=== PATIENT | female | born 1985 | race Caucasian/White ===

== ENCOUNTER 2021-12-01 16:00 | Outpatient (RCR) | payer MEDICAID, SELFPAY | END 2021-12-25 14:23 | disposition home or self-care (01) | PROVIDERS: PCP Physician Assistant Medical; Visit Provider Family Medicine | DX: M54.50 Low back pain, unspecified (principal); Z51.89 Encounter for other specified aftercare | CPT/HCPCS: 97110; 97140; 97162 ==

== ENCOUNTER 2022-07-10 16:59 | Emergency (ER) | payer MEDICAID, SELFPAY ==
[2022-07-10 17:17] VITALS: BP 119/78; PULSE 74; RESP 18; TEMP 36.4; O2SAT 100; BMI 35.4
[2022-07-10 18:19] LABS: Appearance Urine Cloudy (Clear); Bilirubin Urine Negative (Negative); Blood Urine Trace-lysed (Negative); Color Urine Yellow (Yellow); Glucose Urine Negative (Negative); Ketones Urine Negative (Negative); Leukocyte Esterase Urine 1+ (Negative); Nitrite Urine Negative (Negative); Protein Urine Negative (Negative); Urobilinogen Urine 0.2 (0.2-1.0); pH Urine 6.5 (5.0-8.5)
[2022-07-10 18:33] LABS: Squamous Epithelial Cell Urine Few (None-Few)
--- NOTE | 2022-07-10 19:18 | ED_ITS ---
HPI - General Adult General Time Seen by Provider: 19:18 Date Seen: 07/10/22 Chief complaint: Flank Pain Stated complaint: bad lower back pain Time Seen by Provider: 07/10/22 19:17 Source: patient, RN notes reviewed and old records reviewed Mode of arrival: ambulatory Limitations: no limitations History of Present Illness HPI narrative: Michelle is a very pleasant 36-year-old female with a history of PID, bipolar disorder who comes to the emergency room with complaints of left flank and abdominal pain. 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 The following day she began experiencing painful urination which has increased. She has not noticed any blood in her urine. She has been dealing with some constipation and thought that may be implicated. She notes that she actually went to the chiropractor and had back adjustments which usually help her. This time, however, it is not helping people. She has tried heat and ibuprofen as well as other roller ball. She feels that that she is starting to get nauseated today and she has been experiencing chills. She denies any vomiting or obvious fever. In regards to her constipation shoe as actually at [facility] today for a stooling urge tests. Related Data Home Medications Medication Instructions Recorded Confirmed clonazepam 0.5 mg disintegrating 0.5 mg PO 02/05/22 04/18/22 tablet clonidine HCl 0.1 mg tablet 0.2 mg PO 02/05/22 04/18/22 linaclotide 290 mcg capsule 290 mcg PO 02/05/22 04/18/22 (Linzess) trazodone 50 mg tablet 100 mg PO 02/05/22 04/18/22 hydroxyzine pamoate 50 mg capsule 50 mg PO PRN 04/18/22 04/18/22 lamotrigine 25 mg tablet 125 mg PO 04/18/22 04/18/22 levothyroxine 50 mcg tablet 88 mcg PO DAILY 04/18/22 07/10/22 plecanatide 3 mg tablet (Trulance) 3 mg PO DAILY 07/10/22 07/10/22 venlafaxine 37.5 mg 37.5 mg PO DAILY 07/10/22 07/10/22 capsule,extended release 24 hr Allergies Allergy/AdvReac Type Severity Reaction Status Date / Time No Known Allergies Allergy Verified 07/10/22 17:23 Review of Systems Status of ROS: Reports: 6 or more systems reviewed and unremarkable except as noted in History and below [facility] Surgical History History of tubal ligation ?Z98.51 - Tubal ligation status (ICD-10) Social History Smoking Status: Former smoker Do you use any of these nicotine containing products: None Second hand tobacco smoke exposure: No How often do you have a drink containing alcohol: 2-4 times a month AUDIT-C Alcohol total score: 2 Non-prescribed substance use: denies use Exam Narrative: Exam Narrative: Patient is alert and oriented. She is somewhat uncomfortable. She is seems to be chilled. External ears eyes nose clear. Oral cavity is moist mucous membranes. Heart with regular rate and rhythm and lungs are clear. She does have CVA tenderness to percussion on the left. She also has what appears to be some soft tissue discomfort with palpation over the superior posterior iliac spine. There is an area of redness on her left lateral posterior superior hip. Warm to the touch no blistering is noted. Abdomen shows tenderness in the left lower quadrant. No rebound tenderness no masses are palpated. Moving all extremities. Const: Vital Signs, click to edit/add: Vital Signs - 24 hr 07/10/22 17:17 Temperature 97.5 F L Pulse Rate [Pulse Oximeter] 74 Respiratory Rate 18 Blood Pressure [Ri ght Upper Arm] 119/78 Pulse Oximetry 100 Oxygen Delivery Me thod Room Air Documenting provider has reviewed patient's vital signs: yes Course Course Hospital Course: Differential diagnosis includes but is not limited to pyelonephritis, ureteral colic, kidney stone, colitis, diverticulitis, soft tissue injury, musculoskeletal pain. Will place an IV and draw labs to include CBC, comprehensive, urinalysis, CRP. Spoke briefly about possible imaging but will hold off at this time. Will give patient Zofran 4 mg and Toradol 15 mg as well as 1 L of normal saline. Vital Signs Vital signs: Initial Vital Signs Temperature 97.5 F L 07/10/22 17:17 Temperature Source Temporal Artery Scan 07/10/22 17:17 Pulse Rate 74 07/10/22 17:17 Respiratory Rate 18 07/10/22 17:17 Blood Pressure 119/78 07/10/22 17:17 Blood Pressure Mean 91 07/10/22 17:17 Blood Pressure Position Sitting 07/10/22 17:17 Pulse Oximetry 100 07/10/22 17:17 Oxygen Delivery Method Room Air 07/10/22 17:17 Vital Signs Temperature 97.5 F L 07/10/22 17:17 Pulse Rate 74 07/10/22 17:17 Respiratory Rate 18 07/10/22 17:17 Blood Pressure 119/78 07/10/22 17:17 Pulse Oximetry 100 07/10/22 17:17 Oxygen Delivery Method Room Air 07/10/22 17:17 Temperature 97.5 F L 07/10/22 17:17 Pulse Rate 74 07/10/22 17:17 Respiratory Rate 18 07/10/22 17:17 Blood Pressure 119/78 07/10/22 17:17 Pulse Oximetry 100 07/10/22 17:17 Oxygen Delivery Method Room Air 07/10/22 17:17 Medical Decision Making [facility] Narrative Medical decision making narrative: 1. UTI-urinalysis not obvious with large amounts of white and red cells but given patient's history and dysuria I do suspect suspect this is a urinary tract infection. No evidence of stone or underlying bowel pathology on CT. Will treat with Levaquin 500 mg daily for 7 days while awaiting urine culture. I suspect this has ascended to the left kidney although there is no evidence of sepsis and labs are reassuring. Ibuprofen may be used for discomfort. I have given her 4 tablets through our [employer] machine a Percocet to be used for breakthrough pain. 1/2-1 tab p.o. q.4-6 hours p.r.n. pain. No further narcotic should be issued via our emergency room. Patient noted to deny any history of addiction. No recent narcotics her prescription monitoring program. 2. Disposition-home at this time. Return for fever, vomiting, worsening symptoms and as needed. Medical Records Medical records reviewed: Yes I reviewed the patient's medical records Lab Data Lab results reviewed: Yes I reviewed the patient's lab results Labs: Lab Results 07/10/22 07/10/22 Range/Units 17:30 19:38 WBC 5.99 (4.50-11.00) K/uL RBC 4.42 (4.00-5.20) m/uL Hgb 12.9 (12.0-16.0) gm/dL Hct 40.1 (33.0-51.0) % MCV 91 (80-100) fL MCH 29 (26-34) pg MCHC 32 (32-36) gm/dL RDW Coeff of Jodee 12.9 (11.5-15.5) % Plt Count 275 (140-440) K/uL Neut % (Auto) 45.8 (42.0-72.0) % Lymph % (Auto) 43.6 (20-44) % [place] % (Auto) 6.7 (0.0-11.0) % Eos % (Auto) 3.2 (0.0-7.0) % Baso % (Auto) 0.7 (0.0-3.0) % Neut # (Auto) 2.75 (1.7-7.0) K/uL Lymph # (Auto) 2.61 (0.90-2.90) K/uL [place] # (Auto) 0.40 (0.00-0.90) K/UL Eos # (Auto) 0.19 (0.00-0.50) K/uL Baso # (Auto) 0.04 (0.00-0.30) K/uL Sodium 138 (135-149) mmol/L Potassium 4.3 (3.6-5.1) mmol/L Chloride 103 (96-114) mmol/L Carbon Dioxide 26 (20-32) mmol/L BUN 20 (5-24) mg/dL Creatinine 1.0 (0.5-1.5) mg/dL Estimated Creat Clear 82.06 Estimated GFR 75 ml/min Glucose 83 (60-115) mg/dL Lactate 0.6 (0.5-1.9) mmol/L Calcium 8.9 (8.4-10.6) mg/dL Total Bilirubin 0.4 (0.1-1.5) mg/dL AST 23 (12-35) U/L ALT 21 (4-35) U/L Alkaline Phosphatase 43 (40-150) U/L C-Reactive Protein < 0.5 L (0.5-1.0) mg/dL Total Protein 7.4 (6.0-8.3) g/dL Albumin 4.6 (3.3-5.0) g/dL Urine Color Yellow (Yellow) Urine Appearance Cloudy A (Clear) Urine pH 6.5 (5.0-8.5) Ur Specific [place] 1.010 (1.000-1.030) Urine Protein Negative (Negative) Urine Glucose (UA) Negative (Negative) Urine Ketones Negative (Negative) Urine Blood Trace-lysed A (Negative) Urine Nitrite Negative (Negative) Urine Bilirubin Negative (Negative) Urine Urobilinogen 0.2 (0.2-1.0) Ur Leukocyte Esterase 1+ A (Negative) Urine RBC 5-10 A (0-2) Urine WBC 5-10 A (0-5) Ur Squamous Epith Cells Few (None-Few) Urine Bacteria None (None) Imaging Data CT scan - abdomen: Attestation: I have reviewed the pertinent imaging results. Radiologist's impression: ower chest: Unremarkable. Liver: Unremarkable. Normal in size and attenuation. No suspicious masses. Gallbladder and bile ducts: Unremarkable. No stones or inflammation. No biliary ductal dilatation. Spleen: Unremarkable. Normal in size. No masses. Adrenal glands: Unremarkable. No nodules. Pancreas: Unremarkable. No mass or inflammation. Kidneys: Unremarkable. No suspicious masses, stones, or hydronephrosis. GI tract: Moderate colonic stool burden. Normal in caliber. No sign of mass or inflammation. Normal appendix. Lymph nodes: No lymphadenopathy. Vasculature: Unremarkable. Omentum/Peritoneum/Abdominal Wall: Unremarkable. No sign of mass or infiltration. No free air or significant free fluid. Pelvis: Unremarkable. Bilateral tubal clips. Bones: Unremarkable for age. IMPRESSION: No acute abdominal or pelvic abnormalities. Discharge Plan Discharge Clinical Impression: UTI (urinary tract infection) Patient Disposition: Home, Self-Care Condition: Improved Additional Instructions: Start antibiotic tonight. Ibuprofen as needed for discomfort. You may use hydrocodone sparingly if ibuprofen does not control your pain. Push fluids. Await the urine culture. Return for worsening symptoms especially vomiting, fever, increasing pain. Activity Level: No Restrictions Discharge Diet: Regular Prescriptions: No Action Linzess 290 mcg capsule 290 mcg PO clonazepam 0.5 mg tablet,disintegrating 0.5 mg PO clonidine HCl 0.1 mg tablet 0.2 mg PO trazodone 50 mg tablet 100 mg PO Patient Comments: TAKE TWO TABLET BY MOUTH DAILY AT BEDTIME lamotrigine 25 mg tablet 125 mg PO levothyroxine 50 mcg tablet 88 mcg PO DAILY hydroxyzine pamoate 50 mg capsule 50 mg PO PRN venlafaxine 37.5 mg capsule,extended release 24hr 37.5 mg PO DAILY Trulance 3 mg tablet 3 mg PO DAILY Follow Up/Referrals: Caitlin Ledbetter PA-C [Referring] - Stand Alone Forms: [facility] Info Instructions
--- NOTE | 2022-07-10 19:45 | CRLHL7_ITS ---
For Patients: As a result of the Century Cures Act, medical imaging exams and procedure reports are released immediately into your electronic medical record. You may view this report before your referring provider. If you have questions, please contact your health care provider. INDICATION: Left flank and lower abdominal pain. TECHNIQUE: CT abdomen and pelvis acquired with 118 cc Isovue 370 IV contrast. COMPARISON: CT abdomen and pelvis 01/19/2021. FINDINGS: Lower chest: Unremarkable. Liver: Unremarkable. Normal in size and attenuation. No suspicious masses. Gallbladder and bile ducts: Unremarkable. No stones or inflammation. No biliary ductal dilatation. Spleen: Unremarkable. Normal in size. No masses. Adrenal glands: Unremarkable. No nodules. Pancreas: Unremarkable. No mass or inflammation. Kidneys: Unremarkable. No suspicious masses, stones, or hydronephrosis. GI tract: Moderate colonic stool burden. Normal in caliber. No sign of mass or inflammation. Normal appendix. Lymph nodes: No lymphadenopathy. Vasculature: Unremarkable. Omentum/Peritoneum/Abdominal Wall: Unremarkable. No sign of mass or infiltration. No free air or significant free fluid. Pelvis: Unremarkable. Bilateral tubal clips. Bones: Unremarkable for age. IMPRESSION: No acute abdominal or pelvic abnormalities. Please note that all CT scans at this facility use dose modulation, iterative reconstruction, and/or weight-based dosing when appropriate to reduce radiation dose to as low as reasonably achievable. Dictated by Duran Hanna MD @ 07/10/2022 8:34:35 PM (Electronically Signed)
[2022-07-10 19:50] LABS: Lactate* 0.6 mmol/L (0.5-1.9)
[2022-07-10 19:51] LABS: Basophils Absolute Auto 0.04 K/uL (0.00-0.30); Basophils Percent Auto 0.7 % (0.0-3.0); Eosinophils Absolute Auto 0.19 K/uL (0.00-0.50); Eosinophils Percent Auto 3.2 % (0.0-7.0); Hematocrit 40.1 % (33.0-51.0); Hemoglobin* 12.9 gm/dL (12.0-16.0); Lymphocytes Absolute Auto 2.61 K/uL (0.90-2.90); Lymphocytes Percent Auto 43.6 % (20-44); Mean Corpuscular HGB Conc 32 gm/dL (32-36); Mean Corpuscular Hemoglobin 29 pg (26-34); Mean Corpuscular Volume 91 fL (80-100); Monocytes Percent Auto 6.7 % (0.0-11.0); Neutrophils Absolute Auto 2.75 K/uL (1.7-7.0); Neutrophils Percent Auto 45.8 % (42.0-72.0); Platelet Count* 275 K/uL (140-440); RDW Coefficient of Variation % 12.9 % (11.5-15.5); Red Blood Count 4.42 m/uL (4.00-5.20); White Blood Count* 5.99 K/uL (4.50-11.00)
[2022-07-10 19:59] LABS: Slide Review Reflex No
[2022-07-10 20:13] LABS: Chloride* 103 mmol/L (96-114)
[2022-07-10 20:14] LABS: Albumin* 4.6 g/dL (3.3-5.0); Potassium* 4.3 mmol/L (3.6-5.1); Sodium* 138 mmol/L (135-149)
[2022-07-10 20:16] LABS: Est. Creatinine Clearance* 82.06; Estimated Glomerular Filt Rate 75 ml/min
[2022-07-10 20:17] LABS: Alanine Aminotransferase* 21 U/L (4-35); Alkaline Phosphatase* 43 U/L (40-150); Aspartate Amino Transferase* 23 U/L (12-35); Bilirubin Total* 0.4 mg/dL (0.1-1.5); Blood Urea Nitrogen* 20 mg/dL (5-24); Calcium* 8.9 mg/dL (8.4-10.6); Carbon Dioxide* 26 mmol/L (20-32); Glucose* 83 mg/dL (60-115); Total Protein* 7.4 g/dL (6.0-8.3)
[2022-07-10 20:21] LABS: C Reactive Protein* < 0.5 mg/dL (0.5-1.0)
--- NOTE | 2022-07-10 21:58 | ED.NURSE ---
[facility] pharmacy called to verify MD Danielson is aware of narcotic [facility] and home rx of MD joel verbal to continue with [facility]
== END 2022-07-10 22:04 | disposition home or self-care (01) ==
PROVIDERS: Emergency Provider Family Medicine; PCP Family Medicine
DX: N39.0 Urinary tract infection, site not specified (principal)
CPT/HCPCS: 36415; 74177; 80053; 81001; 83605; 85025; 86140; 87086; 99284; Q9967

== ENCOUNTER 2023-01-11 17:00 | Outpatient (CLI) | payer MEDICAID, SELFPAY ==
[2023-01-11 17:03] LABS: RBC Urine 0-2 (0-2); Squamous Epithelial Cell Urine Moderate (None-Few); WBC Clumps Urine Few
== END 2023-01-11 17:01 | disposition home or self-care (01) ==
LOC: NFLDUCREF 17:00
PROVIDERS: PCP Family Medicine; Visit Provider Physician Assistant
DX: R30.0 Dysuria (principal)
CPT/HCPCS: 81015

== ENCOUNTER 2023-12-02 19:38 | Emergency (ER) | payer MEDICAID, SELFPAY ==
[2023-12-02 20:21] VITALS: BP 137/72; PULSE 73; RESP 16; TEMP 36.9; O2SAT 98; BMI 39.9
--- NOTE | 2023-12-02 20:58 | ED_ITS ---
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 Patient notes that she had the onset of a right sided synagogue headache earlier today which is very unusual for her. She notes mild discomfort with looking in light. She has not had any visual changes. She has not had any relief with ibuprofen or Tylenol. She denies any nausea. Notes that this is not a typical headache for her. At the same time she has been noticing a tingling in her right posterior leg. This starts in the hamstrings extends all the way down and includes her heel which she feels is tingling. She does have discomfort when she bends forward or she tries to stand on her heel. Walking increases her discomfort. She denies dragging her leg or tripping. She has not had a history of a DVT in the past. She is worried about a blood clot. No recent injury and cannot recall lifting someone on usually of any trauma slipping or a near slip. Michelle has otherwise been well. Denies possibility of as her tubes are tied. Patient denies night sweats or fevers. Patient does have history of hypothyroidism but no other family or personal history of autoimmune disorders. Related Data Home Medications ?Medication ?Instructions ?Recorded ?Confirmed clonazepam 0.5 mg disintegrating 0.5 mg PO 02/05/22 08/11/23 tablet clonidine HCl 0.1 mg tablet 0.2 mg PO 02/05/22 08/11/23 trazodone 50 mg tablet 100 mg PO 02/05/22 08/11/23 hydroxyzine pamoate 50 mg capsule 50 mg PO PRN 04/18/22 08/11/23 lamotrigine 25 mg tablet 125 mg PO 04/18/22 08/11/23 levothyroxine 50 mcg tablet 88 mcg PO DAILY 04/18/22 12/02/23 plecanatide 3 mg tablet (Trulance) 3 mg PO DAILY 07/10/22 08/11/23 venlafaxine 37.5 mg 37.5 mg PO DAILY 07/10/22 12/02/23 capsule,extended release 24 hr atorvastatin 10 mg tablet 10 mg PO QPM 12/02/23 12/02/23 Allergies Allergy/AdvReac Type Severity Reaction Status Date / Time No Known Allergies Allergy Verified 08/11/23 13:49 Review of Systems Status of ROS: Reports: 10 or more systems reviewed and unremarkable except as noted in History and below Const: Denies: fever, chills or fatigue Eyes: Denies: change in vision or blurry vision ENMT: Denies: throat pain, neck pain, vertigo or nasal discharge Cardio: Denies: chest pain, edema, swelling of feet/ankles, lightheadedness or shortness of breath with exertion Resp: Denies: shortness of breath or cough GI: Denies: abdominal pain, nausea, vomiting or diarrhea : Denies: painful urination Musculo: Reports: extremity pain; Denies: back pain, neck pain, extremity swelling or joint pain Integ/Breast: Denies: rash Neuro: Reports: headache; Denies: numbness in extremities, dizziness or vertigo Endo: Denies: fatigue PFSH PFSH Surgical History History of tubal ligation ?Z98.51 - Tubal ligation status (ICD-10) Social History Smoking Status: Never smoker Do you use any of these nicotine containing products: None Second hand tobacco smoke exposure: No How often do you have a drink containing alcohol: 2-4 times a month AUDIT-C Alcohol total score: 2 Non-prescribed substance use: denies use Exam Narrative: Exam Narrative: Michelle is alert and oriented. She does seem worried. Head is atraumatic normocephalic. She has point tenderness noted over the temporal artery and synagogue. I do not note any edema or injury here face is otherwise symmetrical. EOM is full. Pupils equal round and reactive. She does have mild to moderate photophobia. Oral cavity with moist mucous membranes. Neck is supple, range of motion full. Heart with regular rate and rhythm and lungs are clear bilaterally. Abdomen is soft nontender. Palpation of the lumbar spine buttock show no tenderness. She has subjective tingling in the posterior thigh and posterior calf and into the heel. No erythema areas of edema. I do palpate posterior thigh and there is no discomfort with my palpation. She is able to stand on her heels and stand on her toes. Const: Vital Signs, click to edit/add: Vital Signs - 24 hr 12/02/23 20:21 Temperature 98.5 F Pulse Rate [Pulse Oximeter] 73 Respiratory Rate 16 Blood Pressure [Ri ght Upper Arm] 137/72 Pulse Oximetry 98 Oxygen Delivery Me thod Room Air Documenting provider has reviewed patient's vital signs: yes Course Course ED Course: At this time patient does have a history of headaches but this is unusual for her. She does tenderness noted over the synagogue and therefore will check sed rate and CRP. Will treat for migraine with Reglan 10 mg IV piggyback and Benadryl 25 mg IV push. 1 L of normal saline as well. Head CT is scheduled as this is unusual for her, came along suddenly and is not been responsive to ibuprofen or Tylenol. Obtaining laboratory values as well as ultrasound of the leg. Reevaluation(s) Reevaluation #1: The patient notes resolution of her headache. Ultrasound is negative. Vital Signs Vital signs: Initial Vital Signs Temperature 98.5 F 12/02/23 20:21 Temperature Source Temporal Artery Scan 12/02/23 20:21 Pulse Rate 73 12/02/23 20:21 Respiratory Rate 16 12/02/23 20:21 Blood Pressure 137/72 12/02/23 20:21 Blood Pressure Mean 93 12/02/23 20:21 Blood Pressure Position Sitting 12/02/23 20:21 Pulse Oximetry 98 12/02/23 20:21 Oxygen Delivery Method Room Air 12/02/23 20:21 Vital Signs Temperature 98.5 F 12/02/23 20:21 Pulse Rate 73 12/02/23 20:21 Respiratory Rate 16 12/02/23 20:21 Blood Pressure 137/72 12/02/23 20:21 Pulse Oximetry 98 12/02/23 20:21 Oxygen Delivery Method Room Air 12/02/23 20:21 Temperature 98.5 F 12/02/23 20:21 Pulse Rate 73 12/02/23 20:21 Respiratory Rate 16 12/02/23 20:21 Blood Pressure 137/72 12/02/23 20:21 Pulse Oximetry 98 12/02/23 20:21 Oxygen Delivery Method Room Air 12/02/23 20:21 Medications Administered Medications: Discontinued Medications Generic Name Dose Route Start Last Admin Trade Name Lisa PRN Reason Stop Dose Admin Diphenhydramine HCl 25 mg 12/02/23 21:09 12/02/23 21:56 Diphenhydramine 50 Mg/Ml Inj IVP 12/02/23 21:10 25 mg ONCE ONE Administration Sodium Chloride 1,000 mls @ 1,000 mls/hr 12/02/23 21:10 12/02/23 22:40 0.9 % Sodium Chloride 1000 Ml IV 12/02/23 22:09 Infused .Q1H RIANNA Infusion Metoclopramide HCl 10 mg/ 102 mls @ 306 mls/hr 12/02/23 21:09 12/02/23 22:20 Sodium Chloride IVPB 12/02/23 21:10 Infused ONCE ONE Infusion MDM - Headache MDM Narrative Medical decision making narrative: 1. Headache-head CT reassuring and headache is resolved after Reglan and Benadryl and fluids. Sed rate and CRP within normal limits. 2. Leg pain -patient does work as a CONTROL ROOM OPERATOR. 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 Ultrasound negative for DVT. 3. Disposition-home at this time. Headache resolved. I do not think headache and leg pain are related to each other. No evidence of elevated sed rate to indicate vasculitis. There does not appear to be radicular pain but I suspect this is more of a strain of the leg. Return to the emergency room or seek medical attention for worsening or onset of new symptoms. Patient feels safe going home and feeling much better. Medical Records Attestation: I reviewed the patient's medical records. Lab Data Attestation: I reviewed the patient's lab results. Labs: Lab Results 12/02/23 Range/Units 21:35 WBC 6.96 (4.50-11.00) K/uL RBC 3.93 L (4.00-5.20) m/uL Hgb 11.4 L (12.0-16.0) gm/dL Hct 35.3 (33.0-51.0) % MCV 90 (80-100) fL MCH 29 (26-34) pg MCHC 32 (32-36) gm/dL RDW Coeff of Jodee 13.3 (11.5-15.5) % Plt Count 242 (140-440) K/uL Neut % (Auto) 48.9 (42.0-72.0) % Lymph % (Auto) 39.7 (20-44) % [place] % (Auto) 7.0 (0.0-11.0) % Eos % (Auto) 4.0 (0.0-7.0) % Baso % (Auto) 0.4 (0.0-3.0) % Neut # (Auto) 3.40 (1.7-7.0) K/uL Lymph # (Auto) 2.76 (0.90-2.90) K/uL [place] # (Auto) 0.50 (0.00-0.90) K/UL Eos # (Auto) 0.28 (0.00-0.50) K/uL Baso # (Auto) 0.03 (0.00-0.30) K/uL Abs Immat Gran (auto) 0.00 (0.00-0.30) K/uL Imm/Tot Granulo (auto) 0.0 % ESR 12 (2-20) mm/hr Sodium 136 (135-149) mmol/L Potassium 4.1 (3.6-5.1) mmol/L Chloride 103 (96-114) mmol/L Carbon Dioxide 28 (20-32) mmol/L Anion Gap 5 L (7-15) mEq/L BUN 23 (5-24) mg/dL Creatinine 1.0 (0.5-1.5) mg/dL Estimated Creat Clear 81.28 Estimated GFR 75 ml/min Glucose 78 (60-115) mg/dL Calcium 9.1 (8.4-10.6) mg/dL Total Bilirubin 0.1 (0.1-1.5) mg/dL AST 28 (12-35) U/L ALT 22 (4-35) U/L Alkaline Phosphatase 53 (40-150) U/L C-Reactive Protein < 0.5 L (0.5-1.0) mg/dL Total Protein 6.7 (6.0-8.3) g/dL Albumin 4.1 (3.3-5.0) g/dL Imaging Data CT scan - head: Attestation: I have reviewed the pertinent imaging results. My impression: I do not see any acute abnormalities. Radiologist's impression: The ventricles, sulci and gyri are of normal size, shape and contour. Midline structures are centrally located. No convincing evidence of intra- or extra- axial fluid collections. IMPRESSION: 1. No radiographic evidence of acute intracranial abnormali Venous US: Attestation: I have reviewed the pertinent imaging results. Radiologist's impression: Deep veins: Sonographic imaging demonstrates the right common femoral, deep femoral, superficial femoral, popliteal, posterior tibial and the contralateral left common femoral veins to be fully compressible with normal color Doppler blood flow. Superficial veins: Greater saphenous vein is fully compressible. IMPRESSION: Normal right lower extremity venous ultrasound, no sign of deep venous thr ombosis. Discharge Plan Discharge Clinical Impression: Leg pain, right Headache Qualifiers: Headache type: unspecified Headache chronicity pattern: acute headache Intractability: not intractable Qualified Code(s): R51.9 - Headache, unspecified Patient Disposition: Home, Self-Care Condition: Improved Additional Instructions: Seek medical attention for worsening headache. All of your labs are now back and your white count is normal, electrolytes normal, kidney function normal, inflammatory markers including CRP and ESR are all normal. I do not think your leg is related to your headache. Continue to monitor. No evidence of clot tonight. Ibuprofen or Tylenol as needed for discomfort. Prescriptions: No Action clonazepam 0.5 mg tablet,disintegrating 0.5 mg PO clonidine HCl 0.1 mg tablet 0.2 mg PO trazodone 50 mg tablet 100 mg PO Patient Comments: TAKE TWO TABLET BY MOUTH DAILY AT BEDTIME lamotrigine 25 mg tablet 125 mg PO levothyroxine 50 mcg tablet 88 mcg PO DAILY hydroxyzine pamoate 50 mg capsule 50 mg PO PRN atorvastatin 10 mg tablet 10 mg PO QPM venlafaxine 37.5 mg capsule,extended release 24hr 37.5 mg PO DAILY Trulance 3 mg tablet 3 mg PO DAILY Follow Up/Referrals: Aida Taylor MD [Primary Care Provider] - Stand Alone Forms: [facility] Info Instructions
--- NOTE | 2023-12-02 21:09 | CRLHL7_ITS ---
For Patients: As a result of the Century Cures Act, medical imaging exams and procedure reports are released immediately into your electronic medical record. You may view this report before your referring provider. If you have questions, please contact your health care provider. INDICATION: Right leg discomfort. TECHNIQUE: Ultrasound venous duplex lower right extremity. Compression venous exam was performed using dennis-scale, color Doppler, and spectral Doppler analysis. COMPARISON: None. FINDINGS: Deep veins: Sonographic imaging demonstrates the right common femoral, deep femoral, superficial femoral, popliteal, posterior tibial and the contralateral left common femoral veins to be fully compressible with normal color Doppler blood flow. Superficial veins: Greater saphenous vein is fully compressible. IMPRESSION: Normal right lower extremity venous ultrasound, no sign of deep venous thrombosis. Dictated by Edward Shahid MD @ 12/02/2023 11:16:18 PM (Electronically Signed)
--- NOTE | 2023-12-02 21:09 | CRLHL7_ITS ---
For Patients: As a result of the Century Cures Act, medical imaging exams and procedure reports are released immediately into your electronic medical record. You may view this report before your referring provider. If you have questions, please contact your health care provider. INDICATION: NEW ONSET HEADACHE ON RIGHT SIDE TECHNIQUE: Non-contrast CT of the head is submitted. No comparisons. FINDINGS: The ventricles, sulci and gyri are of normal size, shape and contour. Midline structures are centrally located. No convincing evidence of intra- or extra-axial fluid collections. IMPRESSION: 1. No radiographic evidence of acute intracranial abnormalities. Please note that all CT scans at this facility use dose modulation, iterative reconstruction, and/or weight-based dosing when appropriate to reduce radiation dose to as low as reasonably achievable. Dictated by Edward Shahid MD @ 12/02/2023 9:53:40 PM (Electronically Signed)
[2023-12-02] MEDS: 0.9 % SODIUM CHLORIDE 1000 ml 1,000 ML IV (21:25)
[2023-12-02 21:42] LABS: Basophils Absolute Auto 0.03 K/uL (0.00-0.30); Basophils Percent Auto 0.4 % (0.0-3.0); Eosinophils Absolute Auto 0.28 K/uL (0.00-0.50); Hematocrit 35.3 % (33.0-51.0); Hemoglobin* 11.4 gm/dL (12.0-16.0); Lymphocytes Absolute Auto 2.76 K/uL (0.90-2.90); Lymphocytes Percent Auto 39.7 % (20-44); Mean Corpuscular HGB Conc 32 gm/dL (32-36); Mean Corpuscular Hemoglobin 29 pg (26-34); Mean Corpuscular Volume 90 fL (80-100); Neutrophils Percent Auto 48.9 % (42.0-72.0); Platelet Count* 242 K/uL (140-440); RDW Coefficient of Variation % 13.3 % (11.5-15.5); Red Blood Count 3.93 m/uL (4.00-5.20); White Blood Count* 6.96 K/uL (4.50-11.00)
[2023-12-02 21:46] LABS: Slide Review Reflex No
[2023-12-02] MEDS: METOCLOPRAMIDE HCL 10 MG in 0.9 % SODIUM CHLORIDE 100 ml 100 ML 306 MG IVPB (21:55)
[2023-12-02] MEDS: diphenhydrAMINE 50 MG/ML inj 25 MG IVP (21:56)
[2023-12-02 21:57] LABS: Albumin* 4.1 g/dL (3.3-5.0); Chloride* 103 mmol/L (96-114); Potassium* 4.1 mmol/L (3.6-5.1); Sodium* 136 mmol/L (135-149)
[2023-12-02 21:59] LABS: Est. Creatinine Clearance* 81.28; Estimated Glomerular Filt Rate 75 ml/min
[2023-12-02 22:00] LABS: Alanine Aminotransferase* 22 U/L (4-35); Alkaline Phosphatase* 53 U/L (40-150); Anion Gap 5 mEq/L (7-15); Aspartate Amino Transferase* 28 U/L (12-35); Bilirubin Total* 0.1 mg/dL (0.1-1.5); Blood Urea Nitrogen* 23 mg/dL (5-24); Carbon Dioxide* 28 mmol/L (20-32); Glucose* 78 mg/dL (60-115); Total Protein* 6.7 g/dL (6.0-8.3)
[2023-12-02 22:01] LABS: Calcium* 9.1 mg/dL (8.4-10.6)
[2023-12-02 22:05] LABS: C Reactive Protein* < 0.5 mg/dL (0.5-1.0)
[2023-12-02 22:34] LABS: Erythrocyte SedimentationRate* 12 mm/hr (2-20)
== END 2023-12-02 22:58 | disposition home or self-care (01) ==
PROVIDERS: Emergency Provider Family Medicine; PCP Family Medicine
DX: R51.9 Headache, unspecified (principal); M79.604 Pain in right leg
CPT/HCPCS: 36415; 70450; 80053; 85025; 85651; 86140; 93971; 96365; 96375; 99284; 99285; J1200; J2765; J7030

== ENCOUNTER 2024-04-22 15:23 | Emergency (ER) | payer MEDICAID, SELFPAY ==
--- OUTSIDE RECORDS SUMMARY | 2024-04-22 15:25 | XMS_ITS | Clinical Summary ---
Author Organization [facility] Address [place], [place] [address] Care Team Providers Care Thermoplastic Technician Name Role Phone Maddy Childers DO Unavailable [phone] Aida Taylor MD Primary Care Provider Allergies No known active allergies Medications Lactobacillus acidophilus (Probiotic) 10 billion cell cap Take by mouth once daily. 0 05/10/19 22 Active loratadine (CLARITIN) 10 mg tablet Take 1 Tablet (10 mg) by mouth once daily. 0 05/10/19 22 Active Blood Pressure Monitor KitIndications:Epi sodic lightheadedness Frequency of testing: daily, as needed 1 Each 08/06/19 23 Active linaCLOtide (Linzess) 290 mcg cap capsule Take 290 mcg by mouth once daily. Active levothyroxine (SYNTHROID) 88 mcg tabletIndications: Hypothyroidism (acquired) Take 1 Tablet (88 mcg) by mouth before breakfast. 100 Tablet 3 11/12/19 24 Active atorvastatin (LIPITOR) 10 mg tabletIndications: Hyperlipidemia, unspecified hyperlipidemia type Take 1 Tablet (10 mg) by mouth at bedtime. 100 Tablet 3 11/15/19 24 Active semaglutide, weight loss, (Wegovy) 1 mg/0.5 mL subcutaneous penIndications:Cla ss 2 obesity without serious comorbidity with body mass index (BMI) of 38.0 to 38.9 in adult, unspecified obesity type Inject 1 mg subcutaneous once weekly. 6 mL 3 02/22/20 24 Active clonazePAM (KLONOPIN WAFER) 0.25 mg disintegrating tabletIndications: Insomnia, idiopathic DISSOLVE ONE TABLET IN MOUTH DAILY NEEDED FOR sleep/anxiety. 15 Tablet 2 03/23/19 25 Active lamoTRIgine 25 mg tabletIndications: Bipolar 1 disorder (HC) Take 2 Tablets (50 mg) by mouth at bedtime. In addition to the 200mg dose- total daily dose of 250mg at bedtime 180 Tablet 1 03/23/19 25 Active lamoTRIgine 200 mg tabletIndications: Bipolar 1 disorder (HC) TAKE ONE TABLET BY MOUTH ONE TIME DAILY AT BEDTIME IN ADDITION TO 25MG TABLETS FOR A TOTAL DOSE OF 250MG. 90 Tablet 03/23/19 25 Active hydrOXYzine HCL (ATARAX) 50 mg tabletIndications: Insomnia, idiopathic,General ized anxiety disorder with panic attacks Take 1 tablet (50mg) by mouth once daily at bedtime as needed 90 Tablet 1 03/23/19 25 Active traZODone (DESYREL) 50 mg tabletIndications: Insomnia, idiopathic Take 2 Tablets (100 mg) by mouth at bedtime. 180 Tablet 1 03/23/19 25 Active venlafaxine (EFFEXOR XR) 75 mg cp24 Extended-Release capsuleIndications :Generalized anxiety disorder with panic attacks Take 1 Capsule (75 mg) by mouth once daily with a meal. 90 Capsule 1 03/23/19 25 Active clindamycin (CLEOCIN-T) 1 % lotionIndications: Rosacea Use daily, may increase to twice a day. 60 mL 3 04/05/19 25 Active azelaic acid (Finacea) 15 % gelIndications:Ros acea Apply once daily to face. 50 g 3 04/05/19 25 Active doxycycline hyclate 100 mg capsuleIndications :Acne, unspecified acne type Take 1 Capsule (100 mg) by mouth once daily. 90 Capsule 1 04/13/19 25 Active clindamycin 1% (CLEOCIN-T) 1 % lotionIndications: Perioral dermatitis Apply topically to affected area(s) two times daily. 60 mL 5 05/10/19 24 025 Discontin ued(Reord er (E-cancel not sent)) doxycycline hyclate 100 mg capsuleIndications :Rosacea TAKE ONE CAPSULE BY MOUTH TWICE DAILY 180 Capsule 02/09/20 24 025 Discontin ued(*Mj rgic/Adve rse Rxn/Side Effects) Active Problems Problem Noted Date Diagnosed Date Controlled substance agreeme nt signed By Yuni Che, DNP, TALENT ASSISTANT, SENIOR ACCOUNTANT CPA, psychiatry on 08/31/2023 / Stefani Yanez LPN 09/20/2023 Overview (09/20/2023): Vitamin D deficiency 02/10/2018 Atypical glandular cells, fa vor neoplasia on cervical Pap smear 12/10/2015 Overview (11/26/2023): 12/2015 Atypical Endocervical cells, FAVOR NEOPLASIA / LSIL. 01/2016 [place]: NIKITA I 08/2017 NIL, no endocervical component seen 09/2018 NIL/HPV+ 10/2018 [place]: Suggestive of NIKITA I, ECC Benign 07/2020 NIL/HPV+ 08/2020 [place]: Negative 11/2021 NIL/HPV negative 09/2022 NIL/HPV negative 11/2023 NIL/HPV negative Plan: HPV-based testing due in 3 years Hypertension 08/30/2015 Metabolic syndrome 12/25/2013 Obesity 09/15/2013 Subclinical hypothyroidism 06/17/2012 Primary insomnia 04/22/2012 Bipolar 1 disorder 03/03/2011 Overview (03/03/2011): In [place], sees Dr. Sandhu at [facility] Anxiety disorder 01/07/2010 Resolved Problems Problem Noted Date Diagnosed Date Resolved Date Cervical high risk HPV (izabel n papillomavirus) test positive 10/18/2018 09/24/2020 Mild depressed bipolar I disorder 08/23/2012 09/01/2023 Bipolar I disorder, single m anic episode, in full remission 01/26/2012 09/01/2023 Depressed bipolar I disorder in partial remission 01/27/2011 09/01/2023 Behavior problem 01/04/2011 09/01/2023 Supervision of other normal 05/09/2010 12/18/2010 Encounters Date Type Department Care Team Description 04/05/2024 4:00 PM [facility] Telemedicine [address] [address] Chelsey Jarrett NP Derm Problem 04/04/2024 Travel 03/23/2024 8:00 AM [facility] Telemedicine [facility] [address] [place] [address] Yuni Che NP Telehealth; Medication Management (Things are going pretty good) 03/23/2024 Refill [facility] [address] [place] [address] Yuni Che NP Refill Request (Trazodone, Hydroxyzine Hcl) 03/21/2024 Travel 03/09/2024 4:00 PM [facility] Office Visit [facility] [address] [place] [address] Aida Taylor MD Medication Management (Follow Up on Wegovy, Just started 1 mg) 03/08/2024 Travel 03/03/2024 Refill [facility] [address] [place] [address] Beka Vail MD Refill Request (Clonazepam) 02/11/2024 Refill [facility] [address] [place] [address] Yuni Che NP Refill Request (Lamotrigine) 02/06/2024 Refill [facility] [address] [place] [address] Chelsey Jarrett NP Refill Request (Doxycycline Hyclate) 01/31/2024 Refill [facility] [address] [place] [address] Aida Taylor MD Refill Request (Wegovy) 01/30/2024 Refill [facility] [address] [place] [address] Yuni Che NP Refill Request (Clonazepam) from Last 3 Months Immunizations Name Administration Dates Next Due AMB Influenza, IIV4 PF (=>6 mos Flulaval,Fluzone Fluarix)(Flu Clinic Only) 01/05/2020,12/29/2017 COVID-19 VACCINE SPIKEVAX (M ODERNA 50MCG/0.5ML) 12YO+ PFS 2023 COVID-19 vaccine (Moderna 100mcg/0.5mL) PF, MDV 05/10/2020,04/12/2020 DTP 12/02/1988 DTaP 05/01/2010, 3,05/07/1987,1987 Dtap-5 Pertussis Antigens 05/01/2010,,12/02/1988,1987,03/15/1987 Hepatitis B, Unspecified 10/08/1999,07/29/1999 INFLUENZA, IIV3 PF (AGE >= 6 MO) 2023 Inactivated Polio Vaccine 12/31/1992,,05/07/1987,1987 Influenza A (H1N1), Inactivated 02/22/2009 Influenza Virus, Unspecified 01/08/2017, 01/12/2014,01/17/2013,2004 Influenza, IIV3 (Age 6-35 mos) 02/22/2009 Influenza, IIV3 (Age >=3 years) 12/11/2010,05/01 Influenza, IIV4 11/28/2021,,11/16/2018,2016 MMR 07/29/1999,12/02/1988 Oral Polio Vaccine 12/31/1992,12/02/1988 Polio Virus, Unspecified 05/07/1987,03/15/1987 Td (Age >=7 Years) 11/05/1999 Tdap 07/26/2020,05/01/2010 Family History Medical History Relation Name Comments Suicidality Brother No Known Problems Daughter 1 No Known Problems Daughter 2 Hypertension Father Psychiatric illness Father Has been hospitalized; unsure if dx of bipolar Cancer-breast Maternal Grandmother Dementia Maternal Grandmother Psychiatric illness Maternal Grandmother Depression No Known Problems Mother Heart attack Paternal Grandfather Stroke Paternal Grandmother Other Sister 1 menstrual migra ine No Known Problems Sister 2 Relation Name Status Comments Brother (Age 17) Daughter 1 Alive Daughter 2 Alive Father Alive Maternal Grandfather Maternal Grandmother Alive Mother Alive Paternal Grandfather Paternal Grandmother Sister 1 Alive Sister 2 Alive Social History Tobacco Use Types Packs/Day Years Used Date Smoking Tobacco: Former Cigarettes 0.5 2 0 05/06/2002 - 05/06/2004 Smokeless Tobacco: Never Tobacco Cessation:Counseling Given: Not Answered Comments:She states that she quit smoking at age 19. Alcohol Use Standard Drinks/Week Comments Yes 0 (1 standard drink = 0.6 oz pur e alcohol) Occ 08/18/22 PHQ-2 Answer Date Recorded PHQ-2 TOTAL SCORE 4 03/22/2024 Social Connections Answer Date Recorded Do you often feel lonely or isolated from those around you? 0 03/08/2024 Alcohol Use Answer Date Recorded How often do you have a drink containing alcohol ? 2 10/23/2021 How many drinks containing a lcohol do you have on a typical day when you are drinking? 0 10/23/2021 How often do you have five or more drinks on one occasion? 0 10/23/2021 Financial Resource Strain Answer Date R ecorded Difficulty of Paying Living Expenses 3 03/08/2024 Difficulty of Paying Living Expenses Not on file 03/08/2024 Food Insecurity Answer Date Recorded Do you worry your food will run out before you are able to buy more? 1 03/08/2024 Transportation Needs Answer Date Record ed Does lack of transportation keep you from medica l appointments? 1 03/08/2024 Does lack of transportation keep you from work, meetings or getting things that you need? 1 03/08/2024 Housing Stability Answer Date Recorded What is your housing situation today? 1 03/08/2024 Utilities Answer Date Recorded Do you have trouble paying f or utilities (for example, heat, electricity, water, phone)? 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 Not on file Not on file Not on file Obstetrics History Para Term AB IAB SAB Ectopic Multiple Livin g Live Births 2 2 2 2 Date Outcome GA Total Labor Labor/2nd/3rd Weight Sex Type Anes PTL Nidhi A1 A5 Name Clin 006 Term 40w 6d 3.52 kg (7 lb 12 oz) F Vag [place] Delivery Location:[place] Comments:No problems 011 Term 39w 1d 3.26 kg (7 lb 3 oz) F Jessy Lovell Last Filed Vital Signs Vital Sign Reading Time Taken Comments Blood Pressure 117/78 03/09/2024 4:09 PM [facility] Pulse 79 03/09/2024 4:09 PM [facility] Temperature 36.9 C (98.4 F) 10/23/2021 10:03 AM CDT Respiratory Rate 20 04/12/2017 12:3 2 PM [facility] Oxygen Saturation 99% 03/09/2024 4:09 PM [facility] Inhaled Oxygen Concentration - - Weight 121.4 kg (267 lb 9.6 oz) 03/09/2024 4:09 PM [facility] Height 178 cm (5' 10.08) 11/12/2023 10 :55 AM CDT Body Mass Index 38.31 11/12/2023 10:55 AM CDT Plan of Treatment Upcoming Encounters Date Type Department Care Team (Late st Contact Info) Description 05/05/2024 7:30 AM [facility] Telemedicine [facility] [address] [place] [address] Yuni Che NP [address] [place] [address] Health Maintenance Due Date Last Done Comments Hepatitis C screening for age 18-79 2004 BMI (ht and wt on same day) for age 18+ 11/11/2024 11/12/2023, 09/28/2022, 05/18/2022, Additional history exists Depression screening for age 12+ 03/23/2025 03/23/2024, 03/23/2024, 03/22/2024, Additional history exists Pap test for age 21-65 11/11/2026 , 11/12/2023, 09/28/2022, Additional history exists Tetanus booster 07/26/2030 07/26/2020, 04/09, 11/05/1999 HIV for age 15-65 Completed 05/01/2010 Tdap Completed 07/26/2020, 05/01/2010 COVID-19 vaccine series Completed 12/22/19, 01/27/2021, 05/10/2020, Additional history exists Influenza for age 9-49 Completed 4, 11/28/2021, 12/12/2020, Additional history exists Pneumococcal series for age 6-49 Aged Out No longer eligible based on patient's age to complete this topic Procedures Procedure Name Priority Date/Time Associated Diagnosis Comments HPV HIGH RISK Routine 11/12/2023 11:34 AM CDT Screening for cervical cancer ANTI HIV 1/2 Routine 05/01/2010 2:11 PM [facility] Supervision of other normal from Last 3 Months or Most Recently Relevant to Health Maintenance Results * HPV HIGH RISK (11/12/2023 11:34 AM CDT) TYPE 16 Negative Negative 11/18/2023 8:21 AM CDT [facility] TYPE 18 Negative Negative 11/18/2023 8:21 AM CDT [facility] OTHER HIGH RISK TYPES Negative Negative 11/18/2023 8:21 AM CDT [facility] Other (Cervical) Non-Blood / Unknown 11/12/2023 11:34 AM CDT 11/16/2023 8:33 AM CDT Narrative [facility] - 11/18/2023 8:21 AM CDT HPV types 16, 18, 31, 33, 35, 39, 45, 51, 52, 56, 58, 59, 66 and 68 DNA were undetectable or below the pre-set threshold. Methodology: Swapna Michaela 4800 HPV Test us Aida Taylor MD MICROBIOLOGY Final Resul t [facility] [address] [place] [address], * HIV (05/01/2010 2:11 PM [facility]) ANTI HIV 1/2 Non-reacti ve [facility] Blood specimen (specimen) BLOOD SPECIMEN / Unknown 05/01/2010 2:11 PM [facility] 05/01/2010 1:57 PM [facility] us Nahed Camarena RAISER HELPER SEND OUTS Final Result [facility] [place]IP [id number] [address] from Last 3 Months or Most Recently Relevant to Health Maintenance Insurance [facility] [place] Care Teams Thermoplastic Technician Relationship Specialty Start Date End Date Aida Taylor MD [address] [place] [address] PCP - General Family Practice 11/14/21 Maddy Childers DO [address] [place] [address] Consulting Physician Psychiatry 09/15/20
[2024-04-22 15:27] VITALS: BP 105/67; PULSE 110; RESP 18; TEMP 36.8; O2SAT 97; BMI 36.2
--- NOTE | 2024-04-22 15:47 | ED.SOB ---
HPI - SOB/Dyspnea General Date Seen: 04/22/24 Chief Complaint: Shortness of Breath/Dyspnea Stated Complaint: SOB, heart burn, headache Time Seen by Provider: 04/22/24 15:26 Source: patient Mode of arrival: ambulatory Limitations: no limitations History of Present Illness HPI Narrative: This very nice lady presents here with a history of heartburn and shortness of breath for the past 2-3 days, she tried [id number] medications yesterday both Tums and 1 dosage of Prilosec and written really notice any relief. She finds her shortness of breath at rest mostly but a little bit when she moves around, she has not been sick otherwise, she is has some midsternal chest pressure, and also some nausea, she had 1 episode of vomiting on , that she thinks may have been related starting this episode, she does have a history of heartburn, she has no personal history of heart disease. No family history of heart disease, she did have a history in the past of hypertension but she says recently her blood pressures been good no history of diabetes, nonsmoker, nonuser of any illicit substances. She denies being . No history of any pulmonary issues such as recurrent pneumonias asthma, I thought I read in her chart that she had a history of a DVT which she says she does not have a history of a DVT or pulmonary emboli. Past medical history of PID, dizziness constipation bipolar disorder, hypothyroidism Related Data Home Medications ?Medication ?Instructions ?Recorded ?Confirmed clonazepam 0.5 mg disintegrating 0.5 mg PO 02/05/22 08/11/23 tablet clonidine HCl 0.1 mg tablet 0.2 mg PO 02/05/22 08/11/23 trazodone 50 mg tablet 100 mg PO 02/05/22 08/11/23 hydroxyzine pamoate 50 mg capsule 50 mg PO PRN 04/18/22 08/11/23 lamotrigine 25 mg tablet 125 mg PO 04/18/22 08/11/23 levothyroxine 50 mcg tablet 88 mcg PO DAILY 04/18/22 12/02/23 plecanatide 3 mg tablet (Trulance) 3 mg PO DAILY 07/10/22 08/11/23 venlafaxine 37.5 mg 37.5 mg PO DAILY 05/05/23 09/26/24 capsule,extended release 24 hr atorvastatin 10 mg tablet 10 mg PO QPM 12/02/23 12/02/23 Allergies Allergy/AdvReac Type Severity Reaction Status Date / Time No Known Allergies Allergy Verified 08/11/23 13:49 Review of Systems Status of ROS: Reports: 10 or more systems reviewed and unremarkable except as noted in History and below [facility] Surgical History History of tubal ligation ?Z98.51 - Tubal ligation status (ICD-10) Social History Smoking Status: Never smoker Do you use any of these nicotine containing products: None Second hand tobacco smoke exposure: No How often do you have a drink containing alcohol: 2-4 times a month AUDIT-C Alcohol total score: 2 Non-prescribed substance use: denies use Exam Narrative: Exam Narrative: On examination in room 3 she is alert oriented in no apparent distress, cranial nerves 3-12 are normal, GCS is 15/15 her pupils are equal round reactive to light there is no scleral icterus redness TMs are normal oropharynx is normal, I can see her JVP but her neck shows normal range of motion, no lymphadenopathy, TMs bilaterally are normal, chest is good air entry bilaterally with no wheezing crackles noted, heart sounds are normal, no respiratory distress, she has no prolonged expiratory phase, with absolutely no wheezing. Abdomen is soft there is no guarding no organomegaly bowel sounds are normal, skin reveals no petechiae rashes she has no swelling of her lower extremities, no edema normal pulses and she moves all extremities independently well neurologically intact her Const: Vital Signs, click to edit/add: Vital Signs - 24 hr 04/22/24 15:27 04/22/24 16:15 04/22/24 17:53 Temperature 98.2 F Pulse Rate [Pulse Oximeter] 110 H 90 84 Respiratory Rate 18 16 16 Blood Pressure [Le ft Upper Arm] 105/67 110/78 110/82 Pulse Oximetry 97 98 98 Oxygen Delivery Me thod Room Air Room Air Room Air Documenting provider has reviewed patient's vital signs: yes Course Reevaluation(s) Time of Reevaluation #1: 17:13 Reevaluation #1: Patient reports that she has a little bit better, I reviewed with her her troponin was negative, her EKG was normal her D-dimer was slightly elevated at 0.69, this is above the age adjusted cut off we would see. Given this I wrecked do recommend that we proceed with a CT scan of her chest. She was in agreement. If this comes back negative then I think we can probably discharge her with the better dose of proton pump inhibitor and follow up with her primary consider an EGD as an outpatient Vital Signs Vital signs: Initial Vital Signs Temperature 98.2 F 04/22/24 15:27 Temperature Source Temporal Artery Scan 04/22/24 15:27 Pulse Rate 110 H 04/22/24 15:27 Respiratory Rate 18 04/22/24 15:27 Blood Pressure 105/67 04/22/24 15:27 Blood Pressure Mean 79 04/22/24 15:27 Blood Pressure Position Sitting 04/22/24 15:27 Pulse Oximetry 97 04/22/24 15:27 Oxygen Delivery Method Room Air 04/22/24 15:27 Vital Signs Temperature 98.2 F 04/22/24 15:27 Pulse Rate 110 H 04/22/24 15:27 Respiratory Rate 18 04/22/24 15:27 Blood Pressure 105/67 04/22/24 15:27 Pulse Oximetry 97 04/22/24 15:27 Oxygen Delivery Method Room Air 04/22/24 15:27 Temperature 98.2 F 04/22/24 15:27 Pulse Rate 84 04/22/24 17:53 Respiratory Rate 16 04/22/24 17:53 Blood Pressure 110/82 04/22/24 17:53 Pulse Oximetry 98 04/22/24 17:53 Oxygen Delivery Method Room Air 04/22/24 17:53 Medications Administered Medications: Discontinued Medications Generic Name Dose Route Start Last Admin Trade Name Freq PRN Reason Stop Dose Admin Sodium Chloride 1,000 mls @ 1,000 mls/hr 04/22/24 15:45 04/22/24 17:52 0.9 % Sodium Chloride 1000 Ml IV 04/22/24 16:44 Infused .Q1H RIANNA Infusion Lidocaine/Aluminum/Magnesium/Simeth 30 ml 04/22/24 15:44 04/22/24 15:55 Gi Cocktail (Visc Lido/Antacid) 30 Ml PO 04/22/24 15:45 30 ml ONCE ONE Administration Pantoprazole Sodium 40 mg 04/22/24 15:44 02/15/25 15:55 Pantoprazole Sodium 40 Mg Inj IVP 04/22/24 15:45 40 mg ONCE ONE Administration MDM - SOB/Dyspnea MDM Narrative Medical decision making narrative: During the evaluation of this patient I considered multiple differential diagnosis is. The life-threatening differential diagnosis include coronary disease/[place], pulmonary embolism, pneumothorax, pneumonia, and aortic dissection. Other differential diagnosis included but were not limited to pericarditis, myocarditis, chest wall pain, GERD, esophageal rupture, rib fracture contusion, pleurisy, as well as other etiologies. Life-threatening differential diagnosis includes occluded COPD exacerbation, pulmonary edema, acute coronary syndromes, pulmonary embolism, pneumonia, and pneumothorax. Other differential diagnosis considerations include asthma, bronchitis as well as other etiologies Medical Records Attestation: I reviewed the patient's medical records. Lab Data Attestation: I reviewed the patient's lab results. Labs: Lab Results 04/22/24 04/22/24 04/22/24 Range/Units 15:44 15:44 15:44 WBC 8.91 (4.50-11.00) K/uL RBC 4.35 (4.00-5.20) m/uL Hgb 12.6 (12.0-16.0) gm/dL Hct 38.9 (33.0-51.0) % MCV 89 (80-100) fL MCH 29 (26-34) pg MCHC 32 (32-36) gm/dL RDW Coeff of Jodee 13.1 (11.5-15.5) % Plt Count 274 (140-440) K/uL Neut % (Auto) 72.0 (42.0-72.0) % Lymph % (Auto) 17.2 L (20-44) % Kinney % (Auto) 6.8 (0.0-11.0) % Eos % (Auto) 3.1 (0.0-7.0) % Baso % (Auto) 0.2 (0.0-3.0) % Neut # (Auto) 6.41 (1.7-7.0) K/uL Lymph # (Auto) 1.50 (0.90-2.90) K/uL Kinney # (Auto) 0.60 (0.00-0.90) K/UL Eos # (Auto) 0.28 (0.00-0.50) K/uL Baso # (Auto) 0.02 (0.00-0.30) K/uL Abs Immat Gran (auto) 0.06 (0.00-0.30) K/uL Imm/Tot Granulo (auto) 0.7 % INR 1.00 (0.91-1.10) APTT 28 (23-33) Seconds D-Dimer Quant (PE/DVT) 0.69 H (0.00-0.50) ug/ml Sodium Cancelled 137 Potassium Cancelled 4.6 Chloride Cancelled Carbon Dioxide Anion Gap BUN Creatinine Estimated Creat Clear Estimated GFR Glucose Calcium Total Bilirubin (0.1-1.5) mg/dL Direct Bilirubin (0.0-0.5) mg/dL AST (12-35) U/L ALT (4-35) U/L Alkaline Phosphatase (40-150) U/L NT-Pro-B Natriuret Pep pg/mL Total Protein (6.0-8.3) g/dL Albumin (3.3-5.0) g/dL Amylase Lipase (23-300) U/L SARS-CoV-2 (PCR) (Negative) Influenza Type A (PCR) (Negative) Influenza Type B (PCR) (Negative) RSV (PCR) (Negative) POC Troponin I (0.01-0.04) ng/ml 04/22/24 04/22/24 04/22/24 Range/Units 15:44 15:44 15:44 WBC (4.50-11.00) K/uL RBC (4.00-5.20) m/uL Hgb (12.0-16.0) gm/dL Hct (33.0-51.0) % MCV (80-100) fL MCH (26-34) pg MCHC (32-36) gm/dL RDW Coeff of Jodee (11.5-15.5) % Plt Count (140-440) K/uL Neut % (Auto) (42.0-72.0) % Lymph % (Auto) (20-44) % Kinney % (Auto) (0.0-11.0) % Eos % (Auto) (0.0-7.0) % Baso % (Auto) (0.0-3.0) % Neut # (Auto) (1.7-7.0) K/uL Lymph # (Auto) (0.90-2.90) K/uL Kinney # (Auto) (0.00-0.90) K/UL Eos # (Auto) (0.00-0.50) K/uL Baso # (Auto) (0.00-0.30) K/uL Abs Immat Gran (auto) (0.00-0.30) K/uL Imm/Tot Granulo (auto) % INR (0.91-1.10) APTT (23-33) Seconds D-Dimer Quant (PE/DVT) (0.00-0.50) ug/ml Sodium Potassium Chloride 101 Carbon Dioxide Cancelled 28 Anion Gap Cancelled 8 BUN Cancelled Creatinine Estimated Creat Clear Estimated GFR Glucose Calcium Total Bilirubin (0.1-1.5) mg/dL Direct Bilirubin (0.0-0.5) mg/dL AST (12-35) U/L ALT (4-35) U/L Alkaline Phosphatase (40-150) U/L NT-Pro-B Natriuret Pep pg/mL Total Protein (6.0-8.3) g/dL Albumin (3.3-5.0) g/dL Amylase Lipase (23-300) U/L SARS-CoV-2 (PCR) (Negative) Influenza Type A (PCR) (Negative) Influenza Type B (PCR) (Negative) RSV (PCR) (Negative) POC Troponin I (0.01-0.04) ng/ml 04/22/24 04/22/24 04/22/24 Range/Units 15:44 15:44 15:44 WBC (4.50-11.00) K/uL RBC (4.00-5.20) m/uL Hgb (12.0-16.0) gm/dL Hct (33.0-51.0) % MCV (80-100) fL MCH (26-34) pg MCHC (32-36) gm/dL RDW Coeff of Jodee (11.5-15.5) % Plt Count (140-440) K/uL Neut % (Auto) (42.0-72.0) % Lymph % (Auto) (20-44) % Kinney % (Auto) (0.0-11.0) % Eos % (Auto) (0.0-7.0) % Baso % (Auto) (0.0-3.0) % Neut # (Auto) (1.7-7.0) K/uL Lymph # (Auto) (0.90-2.90) K/uL Kinney # (Auto) (0.00-0.90) K/UL Eos # (Auto) (0.00-0.50) K/uL Baso # (Auto) (0.00-0.30) K/uL Abs Immat Gran (auto) (0.00-0.30) K/uL Imm/Tot Granulo (auto) % INR (0.91-1.10) APTT (23-33) Seconds D-Dimer Quant (PE/DVT) (0.00-0.50) ug/ml Sodium Potassium Chloride Carbon Dioxide Anion Gap BUN 22 Creatinine Cancelled 1.1 Estimated Creat Clear Cancelled 73.18 Estimated GFR Cancelled Glucose Calcium Total Bilirubin (0.1-1.5) mg/dL Direct Bilirubin (0.0-0.5) mg/dL AST (12-35) U/L ALT (4-35) U/L Alkaline Phosphatase (40-150) U/L NT-Pro-B Natriuret Pep pg/mL Total Protein (6.0-8.3) g/dL Albumin (3.3-5.0) g/dL Amylase Lipase (23-300) U/L SARS-CoV-2 (PCR) (Negative) Influenza Type A (PCR) (Negative) Influenza Type B (PCR) (Negative) RSV (PCR) (Negative) POC Troponin I (0.01-0.04) ng/ml 04/22/24 04/22/24 04/22/24 Range/Units 15:44 15:44 15:44 WBC (4.50-11.00) K/uL RBC (4.00-5.20) m/uL Hgb (12.0-16.0) gm/dL Hct (33.0-51.0) % MCV (80-100) fL MCH (26-34) pg MCHC (32-36) gm/dL RDW Coeff of Jodee (11.5-15.5) % Plt Count (140-440) K/uL Neut % (Auto) (42.0-72.0) % Lymph % (Auto) (20-44) % Kinney % (Auto) (0.0-11.0) % Eos % (Auto) (0.0-7.0) % Baso % (Auto) (0.0-3.0) % Neut # (Auto) (1.7-7.0) K/uL Lymph # (Auto) (0.90-2.90) K/uL Kinney # (Auto) (0.00-0.90) K/UL Eos # (Auto) (0.00-0.50) K/uL Baso # (Auto) (0.00-0.30) K/uL Abs Immat Gran (auto) (0.00-0.30) K/uL Imm/Tot Granulo (auto) % INR (0.91-1.10) APTT (23-33) Seconds D-Dimer Quant (PE/DVT) (0.00-0.50) ug/ml Sodium Potassium Chloride Carbon Dioxide Anion Gap BUN Creatinine Estimated Creat Clear Estimated GFR 66 Glucose Cancelled 82 Calcium Cancelled 9.4 Total Bilirubin 0.5 (0.1-1.5) mg/dL Direct Bilirubin 0.2 (0.0-0.5) mg/dL AST 25 (12-35) U/L ALT 24 (4-35) U/L Alkaline Phosphatase 45 (40-150) U/L NT-Pro-B Natriuret Pep 23 pg/mL Total Protein 7.2 (6.0-8.3) g/dL Albumin 4.5 (3.3-5.0) g/dL Amylase Cancelled Lipase (23-300) U/L SARS-CoV-2 (PCR) (Negative) Influenza Type A (PCR) (Negative) Influenza Type B (PCR) (Negative) RSV (PCR) (Negative) POC Troponin I (0.01-0.04) ng/ml 04/22/24 04/22/24 Range/Units 15:44 15:45 WBC (4.50-11.00) K/uL RBC (4.00-5.20) m/uL Hgb (12.0-16.0) gm/dL Hct (33.0-51.0) % MCV (80-100) fL MCH (26-34) pg MCHC (32-36) gm/dL RDW Coeff of Jodee (11.5-15.5) % Plt Count (140-440) K/uL Neut % (Auto) (42.0-72.0) % Lymph % (Auto) (20-44) % Kinney % (Auto) (0.0-11.0) % Eos % (Auto) (0.0-7.0) % Baso % (Auto) (0.0-3.0) % Neut # (Auto) (1.7-7.0) K/uL Lymph # (Auto) (0.90-2.90) K/uL Kinney # (Auto) (0.00-0.90) K/UL Eos # (Auto) (0.00-0.50) K/uL Baso # (Auto) (0.00-0.30) K/uL Abs Immat Gran (auto) (0.00-0.30) K/uL Imm/Tot Granulo (auto) % INR (0.91-1.10) APTT (23-33) Seconds D-Dimer Quant (PE/DVT) (0.00-0.50) ug/ml Sodium Potassium Chloride Carbon Dioxide Anion Gap BUN Creatinine Estimated Creat Clear Estimated GFR Glucose Calcium Total Bilirubin (0.1-1.5) mg/dL Direct Bilirubin (0.0-0.5) mg/dL AST (12-35) U/L ALT (4-35) U/L Alkaline Phosphatase (40-150) U/L NT-Pro-B Natriuret Pep pg/mL Total Protein (6.0-8.3) g/dL Albumin (3.3-5.0) g/dL Amylase 75 Lipase 114 (23-300) U/L SARS-CoV-2 (PCR) Negative SARS-CoV-2 (Negative) Influenza Type A (PCR) Negative PCR FLU A (Negative) Influenza Type B (PCR) Negative PCR FLU B (Negative) RSV (PCR) Negative PCR RSV (Negative) POC Troponin I 0.00 L (0.01-0.04) ng/ml Imaging Data Chest x-ray: Attestation: I have reviewed the pertinent imaging results. My impression: Negative acute Radiologist's impression: [address] [address] Diagnostic Imaging Report Patient: Michelle Kaplan MR#: [id number] : 1985 Acct:[id number] Loc: ED Service Date: 04/22/24 Attending : Ordering Physician: Elijah Gordillo M.D. Date of Service: 04/22/24 Procedure(s): CT angio chest PE protocol Accession Number(s): [id number] cc: Aida Taylor M.D.; Elijah Gordillo M.D.~ For Patients: As a result of the Cures Act, medical imaging exams and procedure reports are released immediately into your electronic medical record. You may view this report before your referring provider. If you have questions, please contact your health care provider. INDICATION: Shortness of breath, elevated D-dimer. TECHNIQUE: CT of the chest acquired with 95 cc Isovue 370 IV contrast according to the PE protocol. Coronal and sagittal reconstructions. COMPARISON: Same day chest radiograph. FINDINGS: Cardiovascular structures: Normal heart size. Normal caliber thoracic aorta and central pulmonary arteries. No acute pulmonary embolism identified. Mediastinum and yaa: No pathologically enlarged lymph nodes. No pericardial effusion. Lungs and pleura: No focal consolidation, pleural effusion, or pneumothorax. No suspicious pulmonary nodules. No central endobronchial lesion or significant bronchial wall thickening. Chest wall: No mass or adenopathy. Upper abdomen: Unremarkable. Bones: Unremarkable for age. IMPRESSION: 1. Negative for acute pulmonary embolism. 2. No other acute findings in the chest. The lungs are clear. Please note that all CT scans at this facility use dose modulation, iterative reconstruction, and/or weight-based dosing when appropriate to reduce radiation dose to as low as reasonably achievable. Dictated by Melania White MD @ 04/22/2024 6:15:35 PM (Electronically Signed) Patient: Michelle Kaplan MR#: [id number] : 1985 Acct:[id number] Loc: ED Service Date: 04/22/24 Claudette Orozco: Ordering Physician: Elijah Gordillo M.D. Date of Service: 04/22/24 Procedure(s): XR chest 2V Accession Number(s): [id number] cc: Aida Taylor M.D.; Elijah Gordillo M.D.~ For Patients: As a result of the Century Cures Act, medical imaging exams and procedure reports are released immediately into your electronic medical record. You may view this report before your referring provider. If you have questions, please contact your health care provider. INDICATION: Dyspnea. Chest pain. TECHNIQUE: Chest radiographs, 2 views. COMPARISON: None. FINDINGS: Cardiovascular/Mediastinum: Normal heart size. Unremarkable. Lungs: No focal consolidation. Airways: Trachea remains midline. Pleura: No pleural effusions or pneumothorax. Bones: No acute osseous abnormalities. Upper abdomen: Unremarkable. IMPRESSION: No acute cardiopulmonary process. Dictated by Dg Panda MD @ 04/22/2024 4:05:41 PM (Electronically Signed) ECG Data Attestation: I personally reviewed and interpreted this ECG as follows: ECG interpretation date: 04/22/24 Prior ECG tracings: not available for review Interpretation: EKG shows normal sinus rhythm, nonspecific ST wave flattening is noted inferiorly to some degree but mostly laterally, Q-waves are noted laterally inferiorly, QRS QT and QTC are normal Impression: Abnormal EKG, nonspecific T-wave abnormalities, no acute finding Discharge Plan Discharge Clinical Impression: Chest pain, Acid reflux disease Patient Disposition: Home, Self-Care Condition: Improved Instructions: Chest Pain (DC), Diet for Stomach Ulcers and Gastritis (ED), GERD (Gastroesophageal Reflux Disease) (DC), Indigestion (ED) Additional Instructions: Home, rest, use of Prilosec 20 mg b.i.d., I found the cheapest placed a by this was [employer]. Please stay on this for the next 4 weeks, follow-up with your primary care physician in 2 weeks or so, return back if increasing chest pain shortness of breath, or other symptoms that do not follow with this. You can use antacids with the Prilosec. Activity Level: Light activity Discharge Diet: Heart Healthy (2 gm sodium, low fat) Prescriptions: No Action clonazepam 0.5 mg tablet,disintegrating 0.5 mg PO clonidine HCl 0.1 mg tablet 0.2 mg PO trazodone 50 mg tablet 100 mg PO Patient Comments: TAKE TWO TABLET BY MOUTH DAILY AT BEDTIME lamotrigine 25 mg tablet 125 mg PO levothyroxine 50 mcg tablet 88 mcg PO DAILY hydroxyzine pamoate 50 mg capsule 50 mg PO PRN atorvastatin 10 mg tablet 10 mg PO QPM venlafaxine 37.5 mg capsule,extended release 24hr 37.5 mg PO DAILY Trulance 3 mg tablet 3 mg PO DAILY Follow Up/Referrals: Aida Taylor MD [Primary Care Provider] - Stand Alone Forms: [employer] Info Instructions
--- OUTSIDE RECORDS SUMMARY | 2024-04-22 15:51 | XMS_ITS | Clinical Summary ---
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 01/2016 [place]: NIKITA I 08/2017 NIL, no endocervical component seen 09/2018 NIL/HPV+ 10/2018 [place]: Suggestive of NIKITA I, ECC Benign 07/2020 NIL/HPV+ 08/2020 [place]: Negative 11/2021 NIL/HPV negative 09/2022 NIL/HPV negative 11/2023 NIL/HPV negative Plan: HPV-based testing due in 3 years Hypertension 08/30/2015 Metabolic syndrome 12/25/2013 Obesity 09/15/2013 Subclinical hypothyroidism 06/17/2012 Primary insomnia 04/22/2012 Bipolar 1 disorder 03/03/2011 Overview (03/03/2011): In [place], sees Dr. Sandhu at [facility] Anxiety disorder 01/07/2010 Resolved Problems Problem Noted [...] Department Care Team Description 04/05/2024 4:00 PM HYDRAULIC PRESS IN OPERATOR Telemedicine [address] [address] Chelsey Jarrett NP Derm Problem 04/04/2024 Travel 03/23/2024 8:00 AM HYDRAULIC PRESS IN OPERATOR Telemedicine [facility] [address] [place] [address] Yuni Che NP Telehealth; Medication Management (Things are going pretty good) 03/23/2024 Refill [facility] [address] [place] [address] Yuni Che NP Refill Request (Trazodone, Hydroxyzine Hcl) 03/21/2024 Travel 03/09/2024 4:00 PM HYDRAULIC PRESS IN OPERATOR Office Visit [facility] [address] [place] [address] Aida Taylor MD Medication Management (Follow Up on Wegovy, Just started 1 mg) 03/08/2024 Travel 03/03/2024 Refill [facility] [address] [place] [address] Beka Vail MD Refill Request (Clonazepam) 02/11/2024 Refill [facility] [address] [place] [address] Yuni Che NP Refill Request (Lamotrigine) 02/06/2024 Refill [facility] [address] [place] [address] Chelsey Jarrett NP Refill Request (Doxycycline Hyclate) 01/31/2024 Refill [facility] [address] [place] [address] Aida Taylor MD Refill Request (Wegovy) 01/30/2024 Refill [facility] [address] [place] [address] Yuni Che NP Refill Request (Clonazepam) from [...] on file Legal Sex Female 5:18 AM HYDRAULIC PRESS IN OPERATOR Gender Identity Not on file Sexual Orientation Not on file 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 Not on file Not on file Not on file Obstetrics History Para Term AB IAB SAB Ectopic Multiple Livin g Live Births 2 2 2 2 Date Outcome GA Total Labor Labor/2nd/3rd Weight Sex Type Anes PTL Nidhi A1 A5 Name Clin 006 Term 40w 6d 3.52 kg (7 lb 12 oz) F Vag Asuncion Delivery Location:[place] Comments:No problems 011 Term 39w 1d 3.26 kg (7 lb 3 oz) F Jessy Lovell Last Filed Vital Signs Vital Sign Reading Time Taken Comments Blood Pressure 117/78 03/09/2024 4:09 PM HYDRAULIC PRESS IN OPERATOR Pulse 79 03/09/2024 4:09 PM HYDRAULIC PRESS IN OPERATOR Temperature 36.9 C (98.4 F) 10/23/2021 10:03 AM CDT Respiratory Rate 20 04/12/2017 12:3 2 PM HYDRAULIC PRESS IN OPERATOR Oxygen Saturation 99% 03/09/2024 4:09 PM HYDRAULIC PRESS IN OPERATOR Inhaled Oxygen Concentration - - Weight 121.4 kg (267 lb 9.6 oz) 03/09/2024 4:09 PM HYDRAULIC PRESS IN OPERATOR Height 178 cm (5' 10.08) 11/12/2023 10 :55 AM CDT Body Mass Index 38.31 11/12/2023 10:55 AM CDT Plan of Treatment Upcoming Encounters Date Type Department Care Team (Late st Contact Info) Description 05/05/2024 7:30 AM HYDRAULIC PRESS IN OPERATOR Telemedicine [facility] [address] [place] [address] Yuni Che NP [address] [place] [address] Health Maintenance Due Date Last Done Comments [...] ANTI HIV 1/2 Routine 05/01/2010 2:11 PM HYDRAULIC PRESS IN OPERATOR Supervision of other normal from Last 3 Months or Most Recently Relevant to Health Maintenance Results * HPV HIGH RISK (11/12/2023 11:34 AM CDT) TYPE 16 Negative Negative 11/18/2023 8:21 AM CDT [facility] TYPE 18 Negative Negative 11/18/2023 8:21 AM CDT [facility] OTHER HIGH RISK TYPES Negative Negative 11/18/2023 8:21 AM CDT [facility] Other (Cervical) Non-Blood / Unknown 11/12/2023 11:34 AM CDT 11/16/2023 8:33 AM CDT Narrative [facility] - 11/18/2023 8:21 AM CDT HPV types 16, 18, 31, 33, 35, 39, 45, 51, 52, 56, 58, 59, 66 and 68 DNA were undetectable or below the pre-set threshold. Methodology: Swapna Michaela 4800 HPV Test us Aida Taylor MD MICROBIOLOGY Final Resul t [facility] [address] [place] [address], * HIV (05/01/2010 2:11 PM HYDRAULIC PRESS IN OPERATOR) ANTI HIV 1/2 Non-reacti ve [facility] Blood specimen (specimen) BLOOD SPECIMEN / Unknown 05/01/2010 2:11 PM HYDRAULIC PRESS IN OPERATOR 05/01/2010 1:57 PM HYDRAULIC PRESS IN OPERATOR us Nahed Camarena MANAGER SHIP SEND OUTS Final Result [facility] INTERNAL ZIP [address] [address] from Last 3 Months or Most Recently Relevant to Health Maintenance Insurance [facility] [place] Care Teams Renal Social Worker Relationship Specialty Start Date End Date Aida Taylor MD [address] [place] [address] PCP - General Family Practice 11/14/21 Maddy Childers DO [address] [place] [address] Consulting Physician Psychiatry 09/15/20
[2024-04-22] MEDS: PANTOPRAZOLE SODIUM 40 MG INJ IVP (15:55)
[2024-04-22] MEDS: GI COCKTAIL (VISC LIDO/ANTACID) 30 ML PO (15:55)
[2024-04-22] MEDS: 0.9 % SODIUM CHLORIDE 1000 ml 1,000 ML IV (15:56)
[2024-04-22 16:15] VITALS: BP 110/78; PULSE 90; RESP 16; O2SAT 98
[2024-04-22 16:21] LABS: Basophils Absolute Auto 0.02 K/uL (0.00-0.30); Basophils Percent Auto 0.2 % (0.0-3.0); Eosinophils Absolute Auto 0.28 K/uL (0.00-0.50); Eosinophils Percent Auto 3.1 % (0.0-7.0); Hematocrit 38.9 % (33.0-51.0); Hemoglobin* 12.6 gm/dL (12.0-16.0); Immature Granulocytes Abs Auto 0.06 K/uL (0.00-0.30); Immature Granulocytes Pct Auto 0.7 %; Lymphocytes Percent Auto 17.2 % (20-44); Mean Corpuscular HGB Conc 32 gm/dL (32-36); Mean Corpuscular Hemoglobin 29 pg (26-34); Mean Corpuscular Volume 89 fL (80-100); Monocytes Percent Auto 6.8 % (0.0-11.0); Neutrophils Absolute Auto 6.41 K/uL (1.7-7.0); Platelet Count* 274 K/uL (140-440); RDW Coefficient of Variation % 13.1 % (11.5-15.5); Red Blood Count 4.35 m/uL (4.00-5.20); White Blood Count* 8.91 K/uL (4.50-11.00)
[2024-04-22 16:24] LABS: Slide Review Reflex No
[2024-04-22 16:33] LABS: Albumin* 4.5 g/dL (3.3-5.0); Chloride* 101 mmol/L (96-114)
[2024-04-22 16:34] LABS: Potassium* 4.6 mmol/L (3.6-5.1); Sodium* 137 mmol/L (135-149)
[2024-04-22 16:36] LABS: Amylase* 75 U/L (18-89); Anion Gap 8 mEq/L (7-15); Bilirubin Direct* 0.2 mg/dL (0.0-0.5); Bilirubin Total* 0.5 mg/dL (0.1-1.5); Blood Urea Nitrogen* 22 mg/dL (5-24); Carbon Dioxide* 28 mmol/L (20-32); Creatinine* 1.1 mg/dL (0.5-1.5); Est. Creatinine Clearance* 73.18; Estimated Glomerular Filt Rate 66 ml/min; Total Protein* 7.2 g/dL (6.0-8.3)
[2024-04-22 16:37] LABS: Alanine Aminotransferase* 24 U/L (4-35); Alkaline Phosphatase* 45 U/L (40-150); Aspartate Amino Transferase* 25 U/L (12-35); Calcium* 9.4 mg/dL (8.4-10.6); Glucose* 82 mg/dL (60-115); Lipase* 114 U/L (23-300)
[2024-04-22 16:49] LABS: Partial Thromboplastin Time* 28 Seconds (23-33); Prothrombin Time 13.8 Seconds
[2024-04-22 16:52] LABS: D Dimer Quantitative* 0.69 ug/ml (0.00-0.50)
[2024-04-22 16:57] LABS: PCR FLU A Negative PCR FLU A (Negative); PCR FLU B Negative PCR FLU B (Negative); PCR RSV Negative PCR RSV (Negative); SARS PCR* Negative SARS-CoV-2 (Negative)
[2024-04-22 17:09] LABS: NT Pro B Type NatriureticPept* 23 pg/mL
[2024-04-22 17:53] VITALS: BP 110/82; PULSE 84; RESP 16; O2SAT 98
== END 2024-04-22 18:33 | disposition home or self-care (01) ==
PROVIDERS: Emergency Provider Family Medicine; PCP Family Medicine
DX: R07.9 Chest pain, unspecified (principal); K21.9 Gastro-esophageal reflux disease without esophagitis
CPT/HCPCS: 36415; 71046; 71275; 80048; 80076; 82150; 83690; 83880; 84484; 85025; 85379; 85610; 85730; 87631; 94761; 96374; 99284; 99285; A9270; J2470; J7030; Q9967